=== PATIENT | male | born 1975 | race Caucasian/White ===

== ENCOUNTER 2021-11-01 22:21 | Inpatient (IN) | payer BC ==
[2021-11-01] MEDS ORDERED: Ondansetron 4 MG/2 ML SDV IVPUSH ONE (22:50)
[2021-11-01] MEDS ORDERED: Morphine 4 MG/ML Syringe IVPUSH ONE ×2 (22:50→23:43)
[2021-11-01] MEDS ORDERED: Sodium Chloride 0.9% 10 ML SDV FLUSH ONE (23:05)
[2021-11-01] MEDS ORDERED: Iopamidol 612 MG/ML 100 ML Bottle IVPUSH ONE (23:05)
[2021-11-01] MEDS ORDERED: Piperacillin/Tazobactam 4.5 GM in Sodium Chloride 0.9% 100 ML IV ONE (23:42)
[2021-11-01] MEDS ORDERED: Sodium Chloride 0.9% 1,000 ML IV ONE (23:43)
[2021-11-02] MEDS ORDERED: Ondansetron 4 MG/2 ML SDV IVPUSH PRN ×2 (02:20→07:42)
[2021-11-02] MEDS ORDERED: Morphine 2 MG/ML SYRINGE IVPUSH PRN (02:20)
[2021-11-02] MEDS: Ketorolac 15 MG/ML SDV IVPUSH SCH ×3 (02:48→14:15)
[2021-11-02] MEDS ORDERED: Piperacillin/Tazobactam 4.5 GM in Sodium Chloride 0.9% 100 ML IV ONE (06:00)
[2021-11-02] MEDS ORDERED: Bupivacaine 0.5%/EPINEPHrine 1:200,000 50 ML MDV ONE (06:37)
[2021-11-02] MEDS ORDERED: Rocuronium 50 MG/5 ML Vial ONE (06:54)
[2021-11-02] MEDS ORDERED: Lidocaine 1% 4 ML ONE (06:54)
[2021-11-02] MEDS ORDERED: Ondansetron 4 MG/2 ML SDV ONE (06:54)
[2021-11-02] MEDS ORDERED: fentaNYL 250 MCG/5 ML SDV ONE (06:55)
[2021-11-02] MEDS ORDERED: Midazolam 1 MG/ML 2 ML SDV ONE (06:55)
[2021-11-02] MEDS ORDERED: Propofol 200 MG/20 ML SDV ONE ×2 (06:55→08:11)
[2021-11-02] MEDS ORDERED: Lactated Ringers 1,000 ML ONE ×2 (06:55→08:37)
[2021-11-02] MEDS ORDERED: Ketorolac 30 MG/ML SDV ONE (07:32)
[2021-11-02] MEDS ORDERED: Dexamethasone 4 MG/ML 5 ML MDV ONE (07:32)
[2021-11-02] MEDS ORDERED: HYDROmorphone 0.5 MG/0.5 ML Syringe IVPUSH PRN (07:42)
[2021-11-02] MEDS ORDERED: fentaNYL 100 MCG/2 ML SDV IVPUSH PRN (07:42)
[2021-11-02] MEDS ORDERED: Acetaminophen/HYDROcodone 325-5 MG Tab PO PRN (11:30)
== END 2021-11-02 15:45 | disposition home or self-care (01) | DRG 263 ==
LOC: JD.ED 22:21 → JD.MS 23:47
PROVIDERS: ADMIT Surgery; ATTEND Surgery
PROC: 0FT44ZZ Resection of Gallbladder, Percutaneous Endoscopic Approach (ICD-10-PCS; principal; 2021-11-02)
DX: K81.0 Acute cholecystitis (principal); K82.A2 Perforation of gallbladder in cholecystitis; G43.909 Migraine, unspecified, not intractable, without status migrainosus; F17.200 Nicotine dependence, unspecified, uncomplicated
CPT/HCPCS: 36415; 74177; 74177-26; 80053; 83605; 83690; 85025; 87040; 96374; 96375; 96376; 99285-25; J1100; J1885; J2250; J2270; J2370; J2405; J2543; J2704; J2710; J3010; J3490; J7030; J7120; Q9967

== ENCOUNTER 2023-11-03 15:11 | Emergency (ER) | payer BC ==
[2023-11-03 17:06] LABS: BASOPHILS ABSOLUTE AUTO 0.1 K/mm3 (0.0-0.2); BASOPHILS PERCENT AUTO 0.6 % (0.0-1.0); EOSINOPHILS PERCENT AUTO 0.3 % (0.0-6.0); HEMATOCRIT 45.7 % (42.0-52.0); HEMOGLOBIN 16.1 gm/dl (14.0-18.0); IMMATURE GRAN ABSOLUTE AUTO 0.08 K/mm3 (0.00-0.05); IMMATURE GRAN PERCENT AUTO 0.7 % (0.0-0.4); LYMPHOCYTES ABSOLUTE AUTO 0.9 K/mm3 (1.0-4.8); LYMPHOCYTES PERCENT AUTO 7.1 % (24.0-44.0); MEAN CORPUSCULAR HEMOGLOBIN 28.4 pg (28.0-32.0); MEAN CORPUSCULAR HGB CONC 35.2 g/dl (32.0-36.0); MEAN CORPUSCULAR VOLUME 80.6 fl (83.0-99.0); MONOCYTES ABSOLUTE AUTO 1.1 K/mm3 (0.0-0.8); MONOCYTES PERCENT AUTO 9.1 % (0.0-8.0); NEUTROPHILS ABSOLUTE AUTO 9.9 K/mm3 (1.8-7.7); NEUTROPHILS PERCENT AUTO 82.2 % (41.0-71.0); PLATELET COUNT,PLT 356 K/mm3 (150-400); RED BLOOD CELL COUNT 5.67 M/mm3 (4.52-5.90); WHITE BLOOD CELL COUNT,WBC 12.05 K/mm3 (3.9-11.3)
[2023-11-03] MEDS: Sodium Chloride 0.9% 1,000 ML IV STA (17:18)
[2023-11-03] MEDS: Sodium Chloride 0.9% 10 ML Syringe FLUSH PRN (17:19)
[2023-11-03] MEDS: Iopamidol 612 MG/ML 100 ML Bottle IVPUSH ONE (17:27)
[2023-11-03 17:29] LABS: A/G RATIO 0.6 (1-2); ALBUMIN 2.3 g/dl (3.4-5.0); ANION GAP 11.5 (5-15); BILIRUBIN TOTAL 0.6 mg/dL (0.2-1.0); C-REACTIVE PROTEIN 12.93 mg/dL (<0.30); CALCIUM 8.4 mg/dL (8.5-10.1); EST CRCL DRUG DOSING (CG) 94.13 mL/min; POTASSIUM,K 3.5 mEq/L (3.5-5.1); PROTEIN TOTAL,TP 5.9 g/dl (6.4-8.2)
== END 2023-11-03 18:45 | disposition home or self-care (01) ==
LOC: JD.ED 15:11
DX: K51.211 Ulcerative (chronic) proctitis with rectal bleeding (principal); Z79.899 Other long term (current) drug therapy
CPT/HCPCS: 36415; 74177; 80053; 85025; 86140; 96360; 99284; J3490; J7030; Q9967